=== PATIENT | male | born 1985 | race Caucasian/White ===

== ENCOUNTER 2022-06-02 19:36 | Emergency (ER) | payer OTHER ==
[2022-06-02] MEDS ORDERED: Ketorolac 30 MG/ML SDV IVPUSH ONE (19:56)
[2022-06-02] MEDS ORDERED: Sodium Chloride 0.9% 1,000 ML IV ONE (19:56)
[2022-06-02] MEDS ORDERED: Morphine 4 MG/ML Syringe IVPUSH ONE (19:56)
[2022-06-02 20:49] LABS: CARBON DIOXIDE,CO2 27.3 mmol/L (21.0-32.0); POTASSIUM,K 3.5 mmol/L (3.5-5.1)
[2022-06-02] MEDS ORDERED: Ciprofloxacin 500 MG Tab PO ONE (21:04)
[2022-06-02 21:56] LABS: CORONAVIRUS COVID-19 NAA NEGATIVE (NEGATIVE); INFLUENZA A NAA NEGATIVE (NEGATIVE); INFLUENZA B NAA NEGATIVE (NEGATIVE); RESPIRATORY SYNCYTIAL VIR NAA NEGATIVE (NEGATIVE)
== END 2022-06-02 23:17 | disposition home or self-care (01) ==
LOC: MW.ED 19:36
DX: N45.2 Orchitis (principal); N45.1 Epididymitis; Z88.5 Allergy status to narcotic agent; Z79.899 Other long term (current) drug therapy; Z20.822 Contact with and (suspected) exposure to COVID-19
CPT/HCPCS: 0241U; 36415; 76870; 80053; 81003; 85025; 93976; 96361; 96374; 96375; 99284; A9270; J1885; J2270; J7030